=== PATIENT | male | born 1990 | race Asian ===

== ENCOUNTER → 2021-04-06 | Day surgery (SDC) | payer OTHER | END | disposition home or self-care (01) | LOC: JRADIR 12:28 | PROVIDERS: ATTEND Orthopaedic Surgery Hand Surgery | PROC: BP08YZZ Plain Radiography of Right Shoulder using Other Contrast (ICD-10-PCS; principal; 2021-04-06) | DX: M25.511 Pain in right shoulder (principal) | CPT/HCPCS: 23350; 73040-TC-FY; 73222-TC ==